=== PATIENT | male | born 1980 | race Caucasian/White ===

== ENCOUNTER → 2016-10-01 | Day surgery (SDC) | payer OTHER ==
[~2016-10-01] VITALS: Ht 189.2 cm; Wt 76.4 kg
[~2016-10-01] MED LIST: ACETAMINOPHEN 1000 MG/100 ML VIAL IV ONE; ACETAMINOPHEN/HYDROcodone 325 MG/5 MG TAB PO PRN; BACT800T5 PO; BUPIVACAINE HCL PF 0.5% 30 ML VIAL ONE; DEXT 5%-NACL 0.45% 1000 ML INJ 1,000 ML IV SCH; DO NOT ADM ANY ANTICOAGULANT DRUGS XX PRN; FAMOTIDINE 20 MG/2 ML VIAL ONE; IBUP800T23 PO; INSULIN HUMAN REGULAR 1,000 UNITS/10 ML VIAL SQ PRN; KETOROLAC TROMETHAMINE 30 MG/ML (IVP) VIAL IV PUSH ONE; LACTATED RINGER'S 1000 ML IV SCH; METOPROLOL TARTRATE 25 MG TAB PO PRN; MIDAZOLAM HCL 2 MG/2 ML VIAL ONE; ONDANSETRON HCL 4 MG/2 ML VIAL ONE; PROPOFOL 200 MG/20 ML AMP IV ONE; SODIUM CHLORID 0.9% 500 ML IV SCH; SODIUM CHLORIDE 0.9% FLUSH 5 ML FLUSH IVF PRN; SODIUM CHLORIDE 0.9% FLUSH 5 ML FLUSH IVF SCH; ceFAZolin 2 GM PREMIX 50 ML IV SCH; fentaNYL CITRATE 250 MCG/5 ML AMP ONE
[2016-10-01 09:35] VITALS: BP 127/74; PULSE 63; RESP 18; TEMP 97.8; O2SAT 100
[2016-10-01 10:04] LABS: AUTOMATED NEUTROPHIL # 6.4 TH/MM3 (1.8-7.7); BASOPHIL # 0.1 TH/MM3 (0-0.2); BASOPHIL % 0.7 % (0.0-2.0); EOSINOPHIL # 0.1 TH/MM3 (0-0.4); EOSINOPHIL % 1.3 % (0.0-4.0); HEMATOCRIT 42.3 % (39.0-51.0); HEMO FLAGS DIFF FINAL; LYMPH % 20.4 % (9.0-44.0); LYMPHOCYTE # 1.8 TH/MM3 (1.0-4.8); MEAN CELL VOLUME 90.5 FL (80.0-100.0); MEAN CORPUSCULAR HEMOGLOBIN 31.6 PG (27.0-34.0); MEAN CORPUSCULAR HGB CONC 34.9 % (32.0-36.0); MONO % 5.2 % (0.0-8.0); NEUT % 72.4 % (16.0-70.0); PLATELET COUNT 141 TH/MM3 (150-450); RED BLOOD COUNT 4.67 MIL/MM3 (4.50-5.90); RED CELL DISTRIBUTION WIDTH 13.3 % (11.6-17.2); WHITE BLOOD COUNT 8.9 TH/MM3 (4.0-11.0)
--- NOTE | 2016-10-01 12:15 | HP.UPD ---
H&P Update Date: Oct 01, 2016 Note The Pre-Admit History and Physical Examination regarding the above named patient was reviewed (including, but not limited to, vital signs, medications, allergies, co-morbid conditions), and upon re-examination it is noted that: Indicated with "X" x - the patient's condition has not significantly changed since the last examination. [] - the patient's condition has changed since the last examination. Changes: Samantha Arboleda MD Oct 01, 2016 12:14
--- NOTE | 2016-10-01 13:59 | HHI.PR ---
Immediate Post Op Note Procedure Date: Oct 01, 2016 Pre Op Diagnosis: (1) Cellulitis and abscess of hand Post Op Diagnosis: (1) Cellulitis and abscess of hand (2) Mass of left hand Surgeon: Samantha Arboleda Rd Manager(s): None Procedure: 1. Incision and drainage of abscess of left hand. 2. Removal of mass consistent with a foreign body granuloma, left hand. Specimen(s) removed: Mass 1.5 x 0.5 cm in greatest dimension Anesthesia: General Drains: None Tourniquet time (min at mmHg) 19 minutes at 220 mmHg. Patient to: PACU Patient Condition: Good Date/Time of Procedure: SEE SURGICAL CARE RECORD Samantha Arboleda MD Oct 01, 2016 13:59
[2016-10-01 15:05] VITALS: BP 119/68; PULSE 57; RESP 18; TEMP 97.7; O2SAT 99
--- NOTE | 2016-10-04 12:10 | MP ---
cc: ALPHONSO VU M.D. DATE OF SURGERY: 10/01/2016 PREOPERATIVE DIAGNOSIS 1. Cellulitis and abscess of left hand. 2. Mass of left hand. POSTOPERATIVE DIAGNOSIS 1. Cellulitis and abscess of left hand. 2. Mass of left hand. PROCEDURE 1. Incision and drainage of abscess left hand. 2. Removal of mass consistent with a foreign body granuloma from the left hand. ANESTHESIA General. SURGEON Dr. Vu INDICATIONS A 35-year-old male with a history of foreign body which has been removed previously. FINDINGS The area of the foreign body removal showed an abscess cavity. In the palm where there was a feeling of more foreign body there was a foreign body granuloma which measured 1.5 x 0.5 cm in greatest dimension. There was no visible foreign material within the central portion of the capsule. At the end of the procedure both areas had been opened and packed. TOURNIQUET TIME 19 minutes. DETAILS OF PROCEDURE The patient was seen preoperatively where the site and side were identified and marked. The patient was then taken to the operating room, placed in a supine position. His identity was checked against the arm band and the consent form, site and side confirmed. A timeout was called prior to beginning the procedure. The area to be incised was outlined with a marking pen as an elliptical incision over the abscess which was dorsally in the first webspace. In addition, an elliptical incision was designed over the palpable mass in the palm. The arm was then exsanguinated and tourniquet inflated to 220 mmHg. Attention was first turned to the dorsal aspect of the hand where a 15 blade was used to make the elliptical incision down through skin. Under loupe magnification a piece of skin was removed exposing the abscess cavity. Of note is that as soon as the incision was made into the abscess cavity, thick green pus was obtained which was cultured. Once the wound was opened it was suctioned and irrigated and no foreign material was seen within the cavity itself. The decision was then made to open the palmar area. A new 15 blade was now used to make an elliptical incision and new forceps and new scissors used to dissect the elliptical skin. This immediately showed a mass which appeared to be similar to a foreign body granuloma which was well-encapsulated and not adherent to any of the surrounding structures. It was carefully dissected free. There was no purulent material in this area. Once it was removed, it measured at 1.5 x 0.5 cm in greatest dimension. It was then opened. There was no definite discrete foreign body within this granuloma. Both areas were copiously irrigated with saline. The abscess cavity was curetted. No additional foreign material was noted. After irrigation both were packed with 1/4 inch iodoform packing. The tourniquet was released after 90 minutes of tourniquet time. Pressure was applied and after several minutes there was no evidence of any oozing. A dressing was applied using povidone-iodine ointment, Adaptic, Telfa, 4x4s and hand wrap. The patient was then taken from the operating room to the recovery room in satisfactory condition having tolerated the procedure well. Postoperative instructions include keeping the arm elevated, keeping it clean and dry, and returning in several days for follow-up. The patient's , who is a registered nurse, was given instructions regarding removal of packing in the morning, soaking the hand and changing the dressings with Betadine-soaked gauze on a daily basis. He is to continue his antibiotics, keep the arm elevated and dry between dressing changes. MD SHAMAR Hoff/TAURUS /2:08 PM /12:00 PM
== END | disposition home or self-care (01) ==
LOC: HSDC 08:46
PROVIDERS: ATTEND Specialist
DX: L02.512 Cutaneous abscess of left hand (principal); M60.242 Foreign body granuloma of soft tissue, not elsewhere classified, left hand; B95.7 Other staphylococcus as the cause of diseases classified elsewhere
CPT/HCPCS: 00400; 10060; 10120; 85025; 87070; 87077; 87205; 88300; J0131; J0690; J1885; J2250; J2405; J3010; J7120; 88304